=== PATIENT | male | born 1980 | race Caucasian/White ===

== ENCOUNTER 2017-03-22 20:32 | Emergency (ER) | payer OTHER ==
[2017-03-22 20:42] VITALS: BP 120/68
--- NOTE | 2017-03-22 22:23 | EDM.PDOCBH ---
ED HPI GENERAL MEDICAL PROBLEM - General Chief Complaint: Behavioral/Psych Stated Complaint: EVAL Time Seen by Provider: 03/22/17 20:50 Source of Information: Reports: Patient, Police History Limitations: Reports: Uncooperative - History of Present Illness INITIAL COMMENTS - FREE TEXT/NARRATIVE: 36-year-old male with PTSD from service is having an acute exacerbation of agitation, anger, and is threatening several of his family members with homicidal thoughts as well as self suicidal thoughts. He was brought in by police after "giving up his guns". He is now just asking for help. Onset: Unknown/Unsure Severity: Moderate Associated Symptoms: Reports: No Other Symptoms - Related Data Allergies Allergy/AdvReac Type Severity Reaction Status Date / Time No Known Allergies Allergy Verified 03/22/17 20:35 Home Meds: Home Meds NK [No Known Home Meds] 03/22/17 [History] Social & Family History - Tobacco Use Smoking Status *Q: Unknown Ever Smoked ED ROS GENERAL - Review of Systems Review Of Systems: Unable To Obtain (Patient won't cooperate or answer questions ) ED EXAM, BEHAVIORAL HEALTH - Physical Exam Exam: See Below Exam Limited By: No Limitations (Patient did allow us to do a brief exam) General Appearance: Alert, No Apparent Distress Eye Exam: Bilateral Eye: EOMI Head: Atraumatic Neck: Non-Tender Respiratory/Chest: No Respiratory Distress Cardiovascular: Regular Rate, Rhythm Extremities: Normal Inspection Neurological: Alert Psychiatric: Restless, Agitated (Mildly) Skin Exam: Warm, Dry COURSE, BEHAVIORAL HEALTH COMP - Course Vital Signs: Last Vital Signs Temp 97.8 F 03/22/17 20:38 Pulse 97 03/22/17 20:38 Resp 16 03/22/17 20:38 BP 120/68 03/22/17 20:38 Pulse Ox 98 03/22/17 20:38 Orders, Labs, Meds: Laboratory Tests 03/22/17 03/22/17 03/22/17 Range/Units 22:17 22:17 22:17 WBC 6.3 (4.5-11.0) K/uL RBC 4.70 (4.30-5.90) M/uL Hgb 15.3 H (12.0-15.0) g/dL Hct 43.5 (40.0-54.0) % MCV 93 (80-98) fL MCH 33 H (27-31) pg MCHC 35 (32-36) % Plt Count 204 (150-400) K/uL Neut % (Auto) 55 (36-66) % Lymph % (Auto) 34 (24-44) % [place] % (Auto) 9 H (2-6) % Eos % (Auto) 1 L (2-4) % Baso % (Auto) 1 (0-1) % Sodium 143 (140-148) mmol/L Potassium 4.0 (3.6-5.2) mmol/L Chloride 107 (100-108) mmol/L Carbon Dioxide 26 (21-32) mmol/L Anion Gap 10.3 (5.0-14.0) mmol/L BUN 7 (7-18) mg/dL Creatinine 1.0 (0.8-1.3) mg/dL Est Cr Clr Drug Dosing 125.68 mL/min Estimated GFR (MDRD) > 60 (>60) Glucose 99 (74-106) mg/dL Calcium 8.6 (8.5-10.1) mg/dL Total Bilirubin 0.5 (0.2-1.0) mg/dL AST 28 (15-37) U/L ALT 41 (12-78) U/L Alkaline Phosphatase 68 (46-116) U/L Total Protein 8.1 (6.4-8.2) g/dL Albumin 4.2 (3.4-5.0) g/dL Globulin 3.9 H (2.3-3.5) g/dL Albumin/Globulin Ratio 1.1 L (1.2-2.2) Ethyl Alcohol 124 mg/dL Re-Assessment/Re-Exam: Discussed his case with the [facility] in [place], and they will accept him if he goes voluntarily. A CBC, CMP and blood alcohol were necessary and the patient agreed. Transportation was arranged. Blood alcohol was 0.124, the rest of his blood tests were normal. EMS was going to transfer the patient, he again asked to go outside prior to transfer with the nurse to have a cigarette. He had done this several times with the [facility] s [facility] and once with the nursing staff earlier. However on the last trip outside to smoke he suddenly took off running and went AMA. This information was relayed to the [facility]. Also relayed to the [facility]'s Department. Departure - Departure Time of Disposition: 23:45 Disposition: Eloped 07 Condition: Fair Clinical Impression: Alcohol abuse - Discharge Information Referrals: PCP,None [Primary Care Provider] - Forms: ED Department Discharge Care Plan Goals: Patient was accepted to the [facility] and was awaiting transportation when he eloped.
== END 2017-03-22 23:45 | disposition left against medical advice (07) ==
LOC: JP.ED 20:32
DX: F10.10 Alcohol abuse, uncomplicated (principal)
CPT/HCPCS: 36415; 80053; 85025; 99285; G0480; 99283

== ENCOUNTER 2018-10-27 15:22 | Emergency (ER) | payer OTHER ==
[2018-10-27 15:25] VITALS: BP 153/103
--- NOTE | 2018-10-27 16:17 | EDM.PDOCBH ---
ED HPI GENERAL MEDICAL PROBLEM - General Chief Complaint: Drug or Alcohol Abuse Stated Complaint: EVAL Time Seen by Provider: 10/27/18 16:00 Source of Information: Reports: Patient, Police History Limitations: Reports: Intoxication - History of Present Illness INITIAL COMMENTS - FREE TEXT/NARRATIVE: This man was brought in from a another town for a evaluation. He arrived with the Compensation Administrator's department. He had been drinking today and had been making some aggressive comments earlier and people were worried that he might be suicidal although he never claimed he was suicidal. He doesn't know why he is here. He's angry because everybody is "demonizing" him. He doesn't want to hurt anybody. He doesn't feel like he is intoxicated and he won't be doing any driving today. He has plans to see his therapist tomorrow. The staff has been in contact with his therapist and he felt like it was okay for this patient to go home. - Related Data Allergies Allergy/AdvReac Type Severity Reaction Status Date / Time No Known Allergies Allergy Verified 10/27/18 15:24 Home Meds: Home Meds NK [No Known Home Meds] 03/22/17 [History] ED ROS GENERAL - Review of Systems Review Of Systems: ROS reveals no pertinent complaints other than HPI. ED EXAM, BEHAVIORAL HEALTH - Physical Exam Exam: See Below Exam Limited By: Other (This patient is awake and alert does not appear to be intoxicated I don't note that heavy alcohol smell about him either. When he walks he does not want area) General Appearance: Alert, WD/WN Psychiatric: Alert, Other (He seems angry and argumentative and is upset because he was brought to the ER and he doesn't think there was any justification for it. He does say that he's going to see his therapist tomorrow. Denies any suicidal or homicidal thoughts area) COURSE, BEHAVIORAL HEALTH COMP - Course Vital Signs: Last Vital Signs Temp 36.1 C 10/27/18 15:24 Pulse 106 H 10/27/18 15:24 Resp 16 10/27/18 15:24 BP 153/103 H 10/27/18 15:24 Pulse Ox 93 L 10/27/18 15:24 Re-Assessment/Re-Exam: This patient has refused to have a blood alcohol done and I don't think that is something that we absolutely have to have before releasing him. I think it is safe for us to release him as is. He says he'll be walking home and he agrees that he will not be driving today area Departure - Departure Time of Disposition: 16:15 Disposition: Home, Self-Care 01 Condition: Fair Clinical Impression: Alcohol abuse - Discharge Information Instructions: Alcohol Use Disorder Referrals: PCP,None [Primary Care Provider] - Forms: ED Department Discharge Additional Instructions: Because you have had something to drink today and we are not going to check your alcohol you are being released with the understanding that you will not be driving a motor vehicle for the rest of the day. Follow-up with your therapist tomorrow as planned. You are welcome to return to the ER at any time if you wish.
== END 2018-10-27 16:20 | disposition home or self-care (01) ==
LOC: JP.ED 15:22
DX: F10.10 Alcohol abuse, uncomplicated (principal)
CPT/HCPCS: 99283